=== PATIENT | female | born 1935 | race Caucasian/White ===

== ENCOUNTER 2017-04-23 23:20 | Inpatient (IN) ==
[2017-04-24] MEDS ORDERED: ONDANSETRON 4 MG/2 ML VIAL IV STA (00:32)
[2017-04-24] MEDS ORDERED: cefTRIAXone 1,000 MG in SODIUM CHLORIDE 0.9% 100 ML IV STA (00:32)
[2017-04-24] MEDS ORDERED: methylPREDNISolone SOD SUC 125 MG/2 ML VIAL IV STA (00:32)
[2017-04-24] MEDS ORDERED: SODIUM CHLORIDE 0.9% 500 ML IV STA (00:32)
[2017-04-24] MEDS ORDERED: FUROSEMIDE 100 MG/10 ML VIAL IV STA (00:32)
[2017-04-24 00:40] LABS: Basophils % 0.3 % (0.0-0.8); Eosinophils # 0.1 10*3/uL (0.0-0.87); Eosinophils % 0.9 % (0.00-10.9); Hematocrit 43.2 VOL% (35.7-47.0); Hemoglobin 14.5 GM/DL (12.0-16.0); Immature Granulocytes % 0.6 %; Immature Granulocytes Absolute 0.07 #; Lymphocytes # 2.9 10*3/uL (1.4-4.0); Lymphocytes % 24.2 % (21.3-54.2); Mean Corpuscular HGB Conc 33.6 GM/DL (32-36); Mean Corpuscular Hemoglobin 31 PG (27-34); Mean Corpuscular Volume 91.5 FL (87-102); Mean Platelet Volume 11.4 FL (9.6-12.0); Monocytes # 1.1 10*3/uL (0.11-0.8); Monocytes % 9.2 % (1.7-12.7); Neutrophils # 7.7 10*3/uL (1.4-7.4); Neutrophils % 64.8 % (38.7-73.9); Platelet Count 186 T/CUMM (130-400); Red Blood Count 4.72 MC/CUMM (3.8-5.5); Red Cell Distribution Width 14.1 % (9.3-17.3); White Blood Count 11.9 T/CUMM (4-12)
[2017-04-24] MEDS ORDERED: ALBUTEROL 2.5 MG/3 ML NEB RESP TX ONE (00:47)
[2017-04-24 00:48] LABS: PT Patient Result 10.2 SECS
[2017-04-24 00:55] LABS: Lactic Acid 1.7 MMOL/L (0.4-2.0)
[2017-04-24 00:57] LABS: Alanine Aminotransferase 16 U/L (13-56); Albumin 3.5 G/DL (3.4-5.0); Alkaline Phosphatase 97 U/L (45-117); Aspartate Amino Transferase 11 U/L (0-37); Blood Urea Nitrogen 21 MG/DL (7-18); Calcium 9.4 MG/DL (8.5-10.1); Glucose 129 MG/DL (74-106); Magnesium 1.4 MG/DL (1.8-2.4); Osmolality,Calculated 283.4 MOS/KG (273-304); Potassium 4.1 MMOL/L (3.5-5.1); Sodium 140 MMOL/L (136-145); Total Protein 7.7 G/DL (6.4-8.3); Troponin I Only < 0.015 NG/ML (0.00-0.045)
[2017-04-24] MEDS ORDERED: ALBUTEROL 2.5 MG/3 ML NEB RESP TX SCH (01:00)
[2017-04-24] MEDS ORDERED: MAGNESIUM SULF RIDER 2 GM in PREMIX 1 EACH IV STA (01:10)
[2017-04-24] MEDS ORDERED: methylPREDNISolone SOD SUC 125 MG/2 ML VIAL ONE (01:11)
[2017-04-24] MEDS ORDERED: FUROSEMIDE 40 MG/4 ML VIAL ONE (01:11)
[2017-04-24] MEDS ORDERED: FUROSEMIDE 20 MG/2 ML VIAL ONE (01:11)
[2017-04-24] MEDS ORDERED: cefTRIAXone 1,000 MG VIAL ONE (01:11)
[2017-04-24] MEDS ORDERED: SODIUM CHLORIDE 0.9% 100 ML IV ONE (01:11)
[2017-04-24] MEDS ORDERED: ONDANSETRON 4 MG/2 ML VIAL ONE (01:11)
[2017-04-24 02:01] LABS: Apearance,Urine CLEAR (Clear); Bilirubin,Urine Negative (Negative); Blood, Urine Moderate mg/dL (Negative); Glucose,Urine (UA) Negative (Negative); Hyaline Casts,Urine 2 /LPF (0-3); Ketones,Urine Negative (Negative); Mucus,Urine Occasional /LPF (Occasional); Nitrite,Urine Negative (Negative); Protein,Urine Negative; RBC,Urine 2 /HPF (0-4); Urine Color Yellow (Yellow); Urine Specific Gravity 1.016 (1.001-1.035); Urine Urobilinogen < 2.0 EU/DL (0.2-1.0); WBC,Urine 1 /HPF (0-6)
[2017-04-24] MEDS ORDERED: MAGNESIUM SULF RIDER 50 ML IV ONE (02:11)
[2017-04-24] MEDS ORDERED: ENOXAPARIN 100 MG/ML SYRINGE SUBCUT STA (02:14)
[2017-04-24] MEDS ORDERED: ENOXAPARIN 100 MG/ML SYRINGE SUBCUT ONE (02:49)
[2017-04-24] MEDS ORDERED: GLUCAGON 1 MG VIAL IM PRN (03:11)
[2017-04-24] MEDS ORDERED: MORPHINE 2 MG/1 ML SYRINGE IV PRN (03:11)
[2017-04-24] MEDS ORDERED: ACETAMINOPHEN 325 MG TABLET PO PRN (03:11)
[2017-04-24] MEDS ORDERED: SODIUM CHLORIDE 0.9% 1,000 ML IV SCH (03:11)
[2017-04-24] MEDS ORDERED: ONDANSETRON 4 MG/2 ML VIAL IV PRN (03:11)
[2017-04-24] MEDS ORDERED: LEVALBUTEROL 1.25 MG/3 ML NEB RESP TX PRN (03:11)
[2017-04-24] MEDS ORDERED: DEXTROSE 50% 25 GM/50 ML VIAL IV PRN (03:11)
[2017-04-24] MEDS ORDERED: INFLUENZA VIRUS VACCINE 0.5 ML SYRINGE IM ONE (03:36)
[2017-04-24] MEDS: LEVALBUTEROL 1.25 MG/3 ML NEB RESP TX SCH ×3 (05:05→11:06)
[2017-04-24] MEDS: PANTOPRAZOLE 40 MG TABLET PO SCH (08:14)
[2017-04-24] MEDS: INSULIN LISPRO 100 UNIT/ML SUBCUT SCH ×4 (08:14→20:55)
[2017-04-24] MEDS: DOCUSATE SODIUM 100 MG CAPSULE PO SCH ×2 (08:14→20:55)
[2017-04-24] MEDS ORDERED: MAGNESIUM SULF RIDER 2 GM in PREMIX 1 EACH IV ONE (09:00)
[2017-04-24 10:54] LABS: Osmolality,Calculated 292.4 MOS/KG (273-304); Potassium 3.4 MMOL/L (3.5-5.1)
[2017-04-24] MEDS: LEVOFLOXACIN INJ 750 MG in PREMIX 1 EACH IV SCH (12:03)
[2017-04-24] MEDS ORDERED: ALBUTEROL 2.5 MG/3 ML NEB RESP TX PRN (13:00)
[2017-04-24] MEDS ORDERED: POTASSIUM CHLORIDE 20 MEQ TABLET PO ONE (14:00)
[2017-04-24] MEDS: ALBUTEROL 2.5 MG/3 ML NEB RESP TX SCH ×3 (14:09→23:00)
[2017-04-24] MEDS ORDERED: FAMOTIDINE 20 MG TABLET PO PRN (15:30)
[2017-04-24] MEDS: DILTIAZEM CD 120 MG CAPSULE PO SCH (16:01)
[2017-04-24] MEDS: metFORMIN 500 MG TABLET PO SCH (16:03)
[2017-04-24] MEDS: PREGABALIN 100 MG CAPSULE PO SCH (19:10)
[2017-04-24] MEDS: SIMVASTATIN 40 MG TABLET PO SCH (20:54)
[2017-04-25] MEDS: ALBUTEROL 2.5 MG/3 ML NEB RESP TX SCH ×6 (03:10→23:50)
[2017-04-25 06:04] LABS: Calcium 8.5 MG/DL (8.5-10.1); Osmolality,Calculated 289.1 MOS/KG (273-304); Potassium 4.3 MMOL/L (3.5-5.1)
[2017-04-25 06:11] LABS: Basophils % 0.1 % (0.0-0.8); Eosinophils % 0.1 % (0.00-10.9); Hematocrit 37.4 VOL% (35.7-47.0); Hemoglobin 12.6 GM/DL (12.0-16.0); Immature Granulocytes % 0.8 %; Immature Granulocytes Absolute 0.12 #; Lymphocytes # 2.2 10*3/uL (1.4-4.0); Lymphocytes % 14.7 % (21.3-54.2); Mean Corpuscular HGB Conc 33.7 GM/DL (32-36); Mean Corpuscular Hemoglobin 31 PG (27-34); Mean Corpuscular Volume 92.3 FL (87-102); Mean Platelet Volume 11.6 FL (9.6-12.0); Monocytes # 0.9 10*3/uL (0.11-0.8); Neutrophils # 11.7 10*3/uL (1.4-7.4); Neutrophils % 78.3 % (38.7-73.9); Platelet Count 177 T/CUMM (130-400); Red Blood Count 4.05 MC/CUMM (3.8-5.5); Red Cell Distribution Width 14.4 % (9.3-17.3); White Blood Count 14.9 T/CUMM (4-12)
[2017-04-25] MEDS: INSULIN LISPRO 100 UNIT/ML SUBCUT SCH ×4 (08:55→21:00)
[2017-04-25] MEDS: metFORMIN 500 MG TABLET PO SCH ×2 (08:56→16:15)
[2017-04-25] MEDS: DOCUSATE SODIUM 100 MG CAPSULE PO SCH ×2 (08:56→21:01)
[2017-04-25] MEDS: PREGABALIN 100 MG CAPSULE PO SCH ×2 (08:56→21:02)
[2017-04-25] MEDS: DILTIAZEM CD 120 MG CAPSULE PO SCH (08:56)
[2017-04-25] MEDS: PANTOPRAZOLE 40 MG TABLET PO SCH (08:57)
[2017-04-25] MEDS: ENOXAPARIN 40 MG/0.4 ML SYRINGE SUBCUT SCH (13:46)
[2017-04-25] MEDS: LEVOFLOXACIN INJ 750 MG in PREMIX 1 EACH IV SCH (13:47)
[2017-04-25] MEDS ORDERED: ZINC OXIDE PASTE 113 GM TUBE TOP PRN (14:25)
[2017-04-25] MEDS: SIMVASTATIN 40 MG TABLET PO SCH (21:02)
[2017-04-26] MEDS: ALBUTEROL 2.5 MG/3 ML NEB RESP TX SCH ×2 (02:29→08:15)
[2017-04-26 06:25] LABS: Basophils % 0.3 % (0.0-0.8); Eosinophils # 0.1 10*3/uL (0.0-0.87); Eosinophils % 0.9 % (0.00-10.9); Hematocrit 35.9 VOL% (35.7-47.0); Immature Granulocytes % 1.6 %; Immature Granulocytes Absolute 0.14 #; Lymphocytes # 2.7 10*3/uL (1.4-4.0); Lymphocytes % 30.3 % (21.3-54.2); Mean Corpuscular HGB Conc 33.4 GM/DL (32-36); Mean Corpuscular Hemoglobin 31 PG (27-34); Mean Platelet Volume 11.8 FL (9.6-12.0); Monocytes # 0.7 10*3/uL (0.11-0.8); Monocytes % 8.2 % (1.7-12.7); Neutrophils # 5.3 10*3/uL (1.4-7.4); Neutrophils % 58.7 % (38.7-73.9); Platelet Count 182 T/CUMM (130-400); Red Blood Count 3.86 MC/CUMM (3.8-5.5); Red Cell Distribution Width 14.6 % (9.3-17.3)
[2017-04-26] MEDS: metFORMIN 500 MG TABLET PO SCH (08:37)
[2017-04-26] MEDS: LEVOFLOXACIN INJ 750 MG in PREMIX 1 EACH IV SCH (08:37)
[2017-04-26] MEDS: PANTOPRAZOLE 40 MG TABLET PO SCH (08:37)
[2017-04-26] MEDS: PREGABALIN 100 MG CAPSULE PO SCH (08:37)
[2017-04-26] MEDS: DOCUSATE SODIUM 100 MG CAPSULE PO SCH (08:37)
[2017-04-26] MEDS: DILTIAZEM CD 120 MG CAPSULE PO SCH (08:37)
[2017-04-26] MEDS: ENOXAPARIN 40 MG/0.4 ML SYRINGE SUBCUT SCH (08:37)
[2017-04-26] MEDS: INSULIN LISPRO 100 UNIT/ML SUBCUT SCH ×2 (08:41→13:35)
[2017-04-26 12:10] VITALS: BP 128/68
== END 2017-04-26 13:52 | disposition home health service (06) | DRG 194 ==
LOC: EDUNIT# → EDBD → N.ED 23:20 → N.EDINP 04-24 02:38 → N.ICU 04-24 03:06 → N.2E 04-24 12:47
PROVIDERS: ADMIT Internal Medicine; ATTEND Internal Medicine

== ENCOUNTER 2022-08-16 11:15 | Inpatient (IN) ==
[2022-08-16] MEDS ORDERED: NALOXONE 0.4 MG/ML VIAL ONE (11:50)
[2022-08-16] MEDS ORDERED: NALOXONE 0.4 MG/ML VIAL IV STA (11:53)
[2022-08-16] MEDS ORDERED: SODIUM CHLORIDE 0.9% 1,000 ML IV STA (11:53)
[2022-08-16 12:50] LABS: Basophils % 0.4 % (0.0-0.8); Eosinophils # 0.2 10*3/uL (0.0-0.87); Eosinophils % 2.5 % (0.00-10.9); Hematocrit 34.9 VOL% (35.7-47.0); Hemoglobin 11.2 GM/DL (12.0-16.0); Immature Granulocytes % 0.7 %; Immature Granulocytes Absolute 0.06 #; Lymphocytes % 32.7 % (21.3-54.2); Mean Corpuscular HGB Conc 32.1 GM/DL (32-36); Mean Corpuscular Volume 97.8 FL (87-102); Monocytes # 0.6 10*3/uL (0.11-0.8); Monocytes % 6.7 % (1.7-12.7); Platelet Count 236 T/CUMM (130-400); Red Blood Count 3.57 MC/CUMM (3.8-5.5); Red Cell Distribution Width 16.5 % (9.3-17.3)
[2022-08-16 13:09] LABS: Alanine Aminotransferase < 6 U/L (13-56); Albumin 2.2 G/DL (3.4-5.0); Alkaline Phosphatase 101 U/L (45-117); Aspartate Amino Transferase 11 U/L (0-37); Blood Urea Nitrogen 12 MG/DL (7-18); Calcium 8.7 MG/DL (8.5-10.1); Carbon Dioxide 25 MMOL/L (21-32); Chloride 114 MMOL/L (98-107); Glucose 102 MG/DL (74-106); Osmolality,Calculated 291.4 MOS/KG (273-304); Potassium 3.3 MMOL/L (3.5-5.1); Sodium 147 MMOL/L (136-145); Total Protein 6.3 G/DL (6.4-8.2)
[2022-08-16 13:28] LABS: Glucose,Urine (UA) Negative (Negative); Ketones,Urine Negative (Negative); Protein,Urine 30 mg/dL (Negative); Urine Appearance Clear (Clear); Urine Color Yellow (Yellow)
[2022-08-16 13:29] LABS: Bilirubin,Urine Negative (Negative); Blood, Urine Moderate mg/dL (Negative); Nitrite,Urine Negative (Negative); Urine Urobilinogen 0.2 eU/dL (<2.0)
[2022-08-16 13:33] LABS: RBC,Urine 8 /HPF (0-4)
[2022-08-16] MEDS ORDERED: cefTRIAXone 1,000 MG in SODIUM CHLORIDE 0.9% 100 ML IV STA (13:57)
[2022-08-16] MEDS ORDERED: ONDANSETRON 4 MG/2 ML VIAL IV PRN (14:30)
[2022-08-16] MEDS ORDERED: ALBUTEROL/IPRATROPIUM 3 ML NEB RESP TX PRN (14:30)
[2022-08-16] MEDS ORDERED: hydrALAZINE 20 MG/1 ML VIAL IV PRN (14:30)
[2022-08-16] MEDS ORDERED: MAGNESIUM SULF RIDER 2 GM/50 ML PREMIX IV ONE (14:33)
[2022-08-16] MEDS ORDERED: POTASSIUM CHLORIDE 20 MEQ TABLET PO PRN (15:54)
[2022-08-16] MEDS: LACTATED RINGERS 1,000 ML IV SCH (16:40)
[2022-08-16] MEDS: POTASSIUM CHLORIDE RIDER 10 MEQ/100 ML PREMIX IV PRN ×4 (18:30→22:42)
[2022-08-16] MEDS: APIXABAN 2.5 MG TABLET PO SCH ×2 (20:56→21:09)
[2022-08-16] MEDS: DONEPEZIL 5 MG TABLET PO SCH (21:08)
[2022-08-16] MEDS: DOCUSATE/SENNA 50-8.6 MG TABLET PO SCH (21:09)
[2022-08-16] MEDS: NYSTATIN POWDER 15 GM BOTTLE TOP SCH (21:09)
[2022-08-16] MEDS: ROSUVASTATIN 10 MG TABLET PO SCH (21:09)
[2022-08-16] MEDS: ASCORBIC ACID 500 MG TABLET PO SCH (21:09)
[2022-08-17] MEDS: LACTATED RINGERS 1,000 ML IV SCH ×3 (03:16→23:50)
[2022-08-17 05:59] LABS: Basophils % 0.6 % (0.0-0.8); Eosinophils # 0.3 10*3/uL (0.0-0.87); Eosinophils % 3.9 % (0.00-10.9); Hematocrit 31.9 VOL% (35.7-47.0); Hemoglobin 9.9 GM/DL (12.0-16.0); Immature Granulocytes % 0.7 %; Immature Granulocytes Absolute 0.05 #; Lymphocytes # 2.1 10*3/uL (1.4-4.0); Lymphocytes % 30.1 % (21.3-54.2); Mean Corpuscular Volume 100.3 FL (87-102); Mean Platelet Volume 9.8 FL (9.6-12.0); Monocytes # 0.6 10*3/uL (0.11-0.8); Monocytes % 8.3 % (1.7-12.7); Neutrophils % 56.4 % (38.7-73.9); Platelet Count 209 T/CUMM (130-400); Red Blood Count 3.18 MC/CUMM (3.8-5.5); Red Cell Distribution Width 16.7 % (9.3-17.3); White Blood Count 6.87 T/CUMM (4-12)
[2022-08-17 06:28] LABS: Calcium 8.4 MG/DL (8.5-10.1); Osmolality,Calculated 287.6 MOS/KG (273-304); Potassium 4.5 MMOL/L (3.5-5.1); Thyroid Stimulating Hormone 0.671 uIU/ml (0.358-3.74)
[2022-08-17] MEDS: CITALOPRAM 40 MG TABLET PO SCH (09:00)
[2022-08-17] MEDS: ASCORBIC ACID 500 MG TABLET PO SCH ×2 (09:00→20:44)
[2022-08-17] MEDS: PANTOPRAZOLE 40 MG TABLET PO SCH (09:00)
[2022-08-17] MEDS: APIXABAN 2.5 MG TABLET PO SCH ×2 (09:00→20:45)
[2022-08-17] MEDS: NYSTATIN POWDER 15 GM BOTTLE TOP SCH ×2 (09:30→20:44)
[2022-08-17] MEDS: cefTRIAXone 1,000 MG in SODIUM CHLORIDE 0.9% 100 ML IV SCH (15:06)
[2022-08-17] MEDS: ROSUVASTATIN 10 MG TABLET PO SCH (20:44)
[2022-08-17] MEDS: DOCUSATE/SENNA 50-8.6 MG TABLET PO SCH (20:44)
[2022-08-17] MEDS: DONEPEZIL 5 MG TABLET PO SCH (20:44)
[2022-08-17] MEDS: ZINC OXIDE PASTE 113 GM TUBE TOP SCH (23:50)
[2022-08-18] MEDS ORDERED: ACETAMINOPHEN 325 MG TABLET PO ONE (03:57)
[2022-08-18 06:30] LABS: Basophils % 0.5 % (0.0-0.8); Eosinophils # 0.2 10*3/uL (0.0-0.87); Eosinophils % 2.6 % (0.00-10.9); Hematocrit 34.4 VOL% (35.7-47.0); Hemoglobin 10.8 GM/DL (12.0-16.0); Immature Granulocytes % 0.4 %; Immature Granulocytes Absolute 0.03 #; Lymphocytes # 1.9 10*3/uL (1.4-4.0); Lymphocytes % 22.8 % (21.3-54.2); Mean Corpuscular HGB Conc 31.4 GM/DL (32-36); Mean Corpuscular Volume 99.7 FL (87-102); Mean Platelet Volume 9.5 FL (9.6-12.0); Monocytes # 0.5 10*3/uL (0.11-0.8); Monocytes % 6.1 % (1.7-12.7); Neutrophils % 67.6 % (38.7-73.9); Platelet Count 234 T/CUMM (130-400); Red Blood Count 3.45 MC/CUMM (3.8-5.5); Red Cell Distribution Width 16.7 % (9.3-17.3); White Blood Count 8.21 T/CUMM (4-12)
[2022-08-18 06:51] LABS: Alanine Aminotransferase < 9 U/L (13-56); Albumin 1.8 G/DL (3.4-5.0); Alkaline Phosphatase 98 U/L (45-117); Aspartate Amino Transferase 12 U/L (0-37); Blood Urea Nitrogen 7 MG/DL (7-18); Calcium 8.8 MG/DL (8.5-10.1); Carbon Dioxide 24 MMOL/L (21-32); Chloride 111 MMOL/L (98-107); Glucose 78 MG/DL (74-106); Osmolality,Calculated 284.7 MOS/KG (273-304); Potassium 3.8 MMOL/L (3.5-5.1); Sodium 145 MMOL/L (136-145); Total Protein 5.5 G/DL (6.4-8.2)
[2022-08-18] MEDS ORDERED: MAGNESIUM SULF RIDER 4 GM/100 ML PREMIX IV ONE (07:35)
[2022-08-18] MEDS ORDERED: GLUCAGON 1 MG VIAL IM PRN (10:07)
[2022-08-18] MEDS ORDERED: DEXTROSE 10% 250 ML BAG IV PRN (10:11)
[2022-08-18] MEDS: LACTATED RINGERS 1,000 ML IV SCH ×3 (10:34→22:07)
[2022-08-18] MEDS: PANTOPRAZOLE 40 MG TABLET PO SCH (11:02)
[2022-08-18] MEDS: ASCORBIC ACID 500 MG TABLET PO SCH ×2 (11:02→22:09)
[2022-08-18] MEDS: CITALOPRAM 40 MG TABLET PO SCH (11:02)
[2022-08-18] MEDS: APIXABAN 2.5 MG TABLET PO SCH ×2 (11:03→22:09)
[2022-08-18] MEDS: cefTRIAXone 1,000 MG in SODIUM CHLORIDE 0.9% 100 ML IV SCH (11:03)
[2022-08-18] MEDS: NYSTATIN POWDER 15 GM BOTTLE TOP SCH ×2 (11:20→22:08)
[2022-08-18] MEDS: ZINC OXIDE PASTE 113 GM TUBE TOP SCH ×2 (11:20→22:10)
[2022-08-18] MEDS: INSULIN LISPRO 100 UNIT/ML SUBCUT SCH ×3 (11:30→21:19)
[2022-08-18] MEDS: DOCUSATE/SENNA 50-8.6 MG TABLET PO SCH (22:09)
[2022-08-18] MEDS: ROSUVASTATIN 10 MG TABLET PO SCH (22:09)
[2022-08-18] MEDS: DONEPEZIL 5 MG TABLET PO SCH (22:12)
[2022-08-19] MEDS: LACTATED RINGERS 1,000 ML IV SCH ×2 (03:00→13:07)
[2022-08-19 06:07] LABS: Basophils % 0.4 % (0.0-0.8); Eosinophils # 0.3 10*3/uL (0.0-0.87); Eosinophils % 3.7 % (0.00-10.9); Hematocrit 32.5 VOL% (35.7-47.0); Hemoglobin 10.2 GM/DL (12.0-16.0); Immature Granulocytes % 0.5 %; Immature Granulocytes Absolute 0.04 #; Lymphocytes # 2.5 10*3/uL (1.4-4.0); Lymphocytes % 31.3 % (21.3-54.2); Mean Corpuscular HGB Conc 31.4 GM/DL (32-36); Mean Corpuscular Volume 99.1 FL (87-102); Monocytes # 0.6 10*3/uL (0.11-0.8); Neutrophils % 57.1 % (38.7-73.9); Platelet Count 206 T/CUMM (130-400); Red Blood Count 3.28 MC/CUMM (3.8-5.5); Red Cell Distribution Width 16.2 % (9.3-17.3); White Blood Count 7.84 T/CUMM (4-12)
[2022-08-19 06:25] LABS: Alanine Aminotransferase < 9 U/L (13-56); Albumin 1.8 G/DL (3.4-5.0); Alkaline Phosphatase 90 U/L (45-117); Aspartate Amino Transferase 13 U/L (0-37); Blood Urea Nitrogen 8 MG/DL (7-18); Calcium 7.9 MG/DL (8.5-10.1); Carbon Dioxide 25 MMOL/L (21-32); Chloride 110 MMOL/L (98-107); Glucose 83 MG/DL (74-106); Potassium 3.6 MMOL/L (3.5-5.1); Sodium 143 MMOL/L (136-145); Total Protein 4.8 G/DL (6.4-8.2)
[2022-08-19] MEDS ORDERED: LEVOFLOXACIN INJ 750 MG/150 ML PREMIX IV SCH (09:00)
[2022-08-19] MEDS: PANTOPRAZOLE 40 MG TABLET PO SCH (09:37)
[2022-08-19] MEDS: ZINC OXIDE PASTE 113 GM TUBE TOP SCH (09:37)
[2022-08-19] MEDS: CITALOPRAM 40 MG TABLET PO SCH (09:37)
[2022-08-19] MEDS: APIXABAN 2.5 MG TABLET PO SCH (09:37)
[2022-08-19] MEDS: NYSTATIN POWDER 15 GM BOTTLE TOP SCH (09:37)
[2022-08-19] MEDS: ASCORBIC ACID 500 MG TABLET PO SCH (09:37)
[2022-08-19] MEDS: INSULIN LISPRO 100 UNIT/ML SUBCUT SCH ×2 (09:38→13:06)
[2022-08-19 12:20] VITALS: BP 93/58
[2022-08-30] MEDS ORDERED: CYANOCOBALAMIN 1000 MCG/1 ML VIAL IM SCH (09:00)
== END 2022-08-19 13:15 | DRG 689 ==
LOC: EDBD → EDUNIT# → N.ED 11:15 → N.EDINP 14:30 → N.2E 16:33
PROVIDERS: ADMIT Family Medicine; ATTEND Family Medicine